=== PATIENT | female | born 1950 | race African-American/Black ===

== ENCOUNTER → 2016-08-03 | Outpatient (CLI) | payer MEDICARE | END | disposition home or self-care (01) | LOC: LABWHC1 11:10 | PROVIDERS: ATTEND Internal Medicine Nephrology | DX: N18.3 Chronic kidney disease, stage 3 (moderate) (principal) | CPT/HCPCS: 36415; 81050; 82570; 82575 ==

== ENCOUNTER → 2016-10-10 | Outpatient (CLI) | payer MEDICARE | LOC: LABWHC1 12:46 | PROVIDERS: ATTEND Internal Medicine Endocrinology, Diabetes & Metabolism | DX: E11.21 Type 2 diabetes mellitus with diabetic nephropathy (principal); E86.0 Dehydration; Z46.81 Encounter for fitting and adjustment of insulin pump | CPT/HCPCS: 36415; 82565; 84520 ==

== ENCOUNTER → 2016-11-19 | Outpatient (CLI) | payer MEDICARE ==
--- NOTE | 2016-11-19 15:28 | BD ---
EXAMINATION TYPE: MG DEXA axial skeleton. DATE OF EXAM: 11/19/2016 COMPARISON: NONE CLINICAL History: osteoporosis Height: 5'3 Weight: 162 FRAX RISK QUESTIONS: Alcohol (3 or more units per day): no Family History (Parent hip fracture): no Glucocorticoids (More than 3mos): no (Ex: prednisone, prednisolone, methylprednisolone, dexamethasone, and hydrocortisone). History of Fracture in Adulthood: no Secondary Osteoporosis: 1. Type 1 Diabetes: no 2. Hyperthyroidism: no 3. Menopause before 45: yes 4. Malnutrition: no 5. Chronic liver disease: no Rheumatoid Arthritis: no Current Tobacco Use: no RISK FACTORS HISTORY OF: Diet low in dairy products/other sources of calcium: Postmenopausal woman: MEDICATIONS: Additional Medications: cholesterol, neuropathy Additional History: type 2 diabetes, G6PD EXAM MEASUREMENTS: Bone mineral densitometry was performed using the [employer] System. Bone mineral density as measured about the Lumbar spine is: ----- L1-L4(G/cm2): 1.443 T Score Values are as follows: ----- L2: 1.5 ----- L3: 2.6 ----- L4: 2.7 ----- L1-L4: 2.2 Bone mineral density about the R hip (g/cm2): 1.098 Bone mineral density about the L hip (g/cm2): 1.040 T Score values are as follows: -----R Neck: 0.0 -----L Neck: 0.4 -----R Total: 0.7 -----L Total: 0.7 IMPRESSION: Normal (Values between +1 and -1 indicate normal bone mass). Consider repeating this study in 5 year s or sooner if there is some new clinical indication. NOTE: T-SCORE=SD OF THE YOUNG ADULT MEAN.
--- NOTE | 2016-11-21 10:30 | MM ---
Reason for exam: screening (asymptomatic). Last mammogram was performed 1 year and 3 months ago. History: Patient is postmenopausal. Family history of breast cancer in sister at age 50. Physical Findings: A clinical breast exam by your physician is recommended on an annual basis and results should be correlated with mammographic findings. MG 3D Screening Mammo W/Cad Bilateral CC and MLO view(s) were taken. Prior study comparison: August 28, 2015, mammogram. The breast tissue is heterogeneously dense. This may lower the sensitivity of mammography. No significant changes when compared with prior studies. ASSESSMENT: Negative, BI-RAD 1 RECOMMENDATION: Routine screening mammogram of both breasts in 1 year.
== END | disposition home or self-care (01) ==
LOC: RADMAMWWP 07:50
PROVIDERS: ATTEND Internal Medicine
DX: Z12.31 Encounter for screening mammogram for malignant neoplasm of breast (principal); Z13.820 Encounter for screening for osteoporosis
CPT/HCPCS: 77080; 77063; G0202

== ENCOUNTER → 2016-12-17 | Outpatient (CLI) | payer MEDICARE ==
--- NOTE | 2016-12-17 10:43 | XR ---
EXAMINATION TYPE: XR chest 2V DATE OF EXAM: 12/17/2016 COMPARISON: 02/28/2009 individual no report. HISTORY: Enlarged lymph nodes no chest complaints. TECHNIQUE: Frontal and lateral views of the chest are obtained. FINDINGS: There is a dextroscoliotic curvature of the thoracic spine degenerative changes are also a ppreciated of the thoracic spine. Peripheral scattered platelike subsegmental atelectasis is seen wit hin the right lower and left lower lungs. No focal consolidation, pleural effusion or pneumothorax is appreciated. Cholecystectomy clips reside within the right upper quadrant. Cardia mediastinal silhou ette is within normal limits. IMPRESSION: Platelike linear subsegmental peripheral atelectasis. No focal consolidation or acute ca rdiopulmonary process.
== END | disposition home or self-care (01) ==
LOC: RADXRMAIN 10:18
PROVIDERS: ATTEND Internal Medicine
DX: J98.11 Atelectasis (principal)
CPT/HCPCS: 71020

== ENCOUNTER → 2020-03-29 | Outpatient (CLI) | payer MEDICARE ==
[2020-03-29 18:36] LABS: HCT 33.5 % (34.0-46.0); HGB 10.3 gm/dL (11.4-16.0); MCH 28.6 pg (25.0-35.0); MCHC 30.7 g/dL (31.0-37.0); MCV 93.3 fL (80.0-100.0); Mean Platelet Volume 7.5; Platelet Count 306 k/uL (150-450); RDW 13.4 % (11.5-15.5); WBC 9.5 k/uL (3.8-10.6)
[2020-03-30 01:52] LABS: Urine Creatinine 23.6 mg/dL
[2020-03-30 04:37] LABS: African American GFR (CKD) 41.1 (60.0-200.0); Albumin 4.1 g/dL (3.80-4.90); Anion Gap 9.6 mmol/L (4.00-12.00); Calcium 9.1 mg/dL (8.7-10.3); Carbon Dioxide 27.4 mmol/L (21.6-31.8); LDL Cholesterol,Calculated 108.8 mg/dL (0.0-131.0); Magnesium 2.1 mg/dL (1.5-2.4); Non-African American GFR(CKD) 35.4 (60.0-200.0); Potassium 4.5 mmol/L (3.5-5.5); VLDL Calculation 21.2 mg/dL (5.00-40.00)
[2020-03-30 05:19] LABS: Hemoglobin A1C 6.9 % (4.0-6.0)
== END | disposition home or self-care (01) ==
LOC: LABWHC1 16:01
PROVIDERS: ATTEND Internal Medicine Endocrinology, Diabetes & Metabolism
DX: E07.9 Disorder of thyroid, unspecified (principal); E11.21 Type 2 diabetes mellitus with diabetic nephropathy; E11.65 Type 2 diabetes mellitus with hyperglycemia; E78.2 Mixed hyperlipidemia; E55.9 Vitamin D deficiency, unspecified
CPT/HCPCS: 36415; 80051; 80061; 82040; 82043; 82306; 82310; 82565; 82570; 83036; 83735; 84439; 84443; 84450; 84460; 84520; 85027